=== PATIENT | male | born 1940 | race Caucasian/White ===

== ENCOUNTER 2018-11-16 21:31 | Emergency (ER) | payer MEDICARE ==
[~2018-11-16] VITALS: Ht 170.2 cm; Wt 54.5 kg
[2018-11-16 21:33] VITALS: Ht 170.2 cm; Wt 54.5 kg
[2018-11-16 23:26] VITALS: BP 143/74
== END 2018-11-16 23:27 | disposition home or self-care (01) ==
LOC: D.ER 21:31
DX: R07.81 Pleurodynia (principal)

== ENCOUNTER 2018-11-17 14:48 | Emergency (ER) | payer MEDICARE ==
[2018-11-17 14:52] VITALS: Ht 170.2 cm
[2018-11-17 16:04] VITALS: BP 138/90
== END 2018-11-17 16:04 | disposition left against medical advice (07) ==
LOC: D.ER 14:48
DX: F60.9 Personality disorder, unspecified (principal); F29 Unspecified psychosis not due to a substance or known physiological condition

== ENCOUNTER 2018-11-17 18:28 | Emergency (ER) | payer MEDICARE ==
[~2018-11-17] VITALS: Ht 170.2 cm; Wt 55.0 kg
[2018-11-17 18:30] VITALS: Ht 170.2 cm; Wt 55.0 kg
[2018-11-17 18:53] LABS: BASOPHILS 0.1 % (0-2); EOSINOPHILS 0 % (0-7); HEMOGLOBIN 12.8 g/dL (13.5-17.5); IMMATURE GRANULOCYTES 0.3 % (0-5); LYMPHOCYTES 11.8 % (15-50); MCH 28.7 pg (26.0-34.0); MCHC 34.6 g/dL (31.0-37.0); MEAN PLATELET VOLUME 10.1 fL (7.4-10.4); MONOCYTES 3.7 % (2-11); NEUTROPHILS 84.1 % (40-80); PLATELET COUNT 277 10x3/uL (130-400); RBC 4.46 10x6/uL (4.20-6.10); RDW 14.6 % (11.5-14.5); WBC 11.6 10x3/uL (4.8-10.8)
[2018-11-17 19:45] LABS: ANION GAP 21.7 mmol/L (8-16); BILIRUBIN - TOTAL 1.38 mg/dL (0.2-1.3); CALCIUM 8.8 mg/dL (8.5-10.1); CARBON DIOXIDE 19.7 mmol/L (21.0-32.0); CREATININE - SERUM 1.6 mg/dL (0.6-1.3); MAGNESIUM - SERUM 1.9 mg/dL (1.8-2.4); POTASSIUM - SERUM 4.4 mmol/L (3.5-5.1); PROTEIN - SERUM 6.8 g/dL (6.4-8.2)
[2018-11-17 20:57] VITALS: BP 125/87
== END 2018-11-17 20:58 | disposition home or self-care (01) ==
LOC: D.ER 18:28
PROVIDERS: Family Medicine
DX: E86.0 Dehydration (principal)